=== PATIENT | male | born 1970 | race Caucasian/White ===

== ENCOUNTER 2018-10-09 05:58 | Day surgery (SDC) | payer BC ==
[2018-10-06 11:24] LABS: BASOPHILS # (AUTO) 0.1 X10'3 (0-0.2); EOSINOPHILS # (AUTO) 0.1 X10'3 (0-0.9); EOSINOPHILS % (AUTO) 1.9 % (0-6); HEMATOCRIT 50.3 % (42.0-52.0); HEMOGLOBIN 17.2 g/dl (14.0-17.9); LYMPHOCYTES # (AUTO) 1.4 X10'3 (1.1-4.8); LYMPHOCYTES % (AUTO) 26.6 % (21-51); MEAN CORPUSCULAR HEMOGLOBIN 32.3 PG (27.0-31.0); MEAN CORPUSCULAR HGB CONC 34.2 % (33.0-36.5); MEAN CORPUSCULAR VOLUME 94.6 FL (78-98); MEAN PLATELET VOLUME 7.5 FL (7.4-10.4); MONOCYTES # (AUTO) 0.3 X10'3 (0-0.9); MONOCYTES % (AUTO) 4.9 % (2-12); NEUTROPHILS # (AUTO) 3.3 X10'3 (1.8-7.7); NEUTROPHILS % (AUTO) 65.6 % (42-75); PLATELET COUNT 253 X10'3 (140-440); RED BLOOD COUNT 5.31 X10'6 (4.70-6.10); RED CELL DISTRIBUTION WIDTH 11.7 % (11.5-14.5); WHITE BLOOD COUNT 5.2 X10'3 (4.5-11.0)
[2018-10-06 11:39] LABS: PARTIAL THROMBOPLASTIN TIME 29 SECONDS (22-32); PROTHROMBIN TIME 10.5 SECONDS (9.0-12.0)
[2018-10-06 12:49] LABS: ALBUMIN 3.9 G/DL (3.4-5.0); ANION GAP 9 (8-16); BLOOD UREA NITROGEN 14 MG/DL (7-18); BUN/CREATININE RATIO 13.7 (5.4-32.0); CALCIUM 8.9 MG/DL (8.5-10.1); CHLORIDE 104 MMOL/L (99-107); CREATININE 1.02 MG/DL (0.60-1.10); GLUCOSE 104 MG/DL (70-104); POTASSIUM 3.6 MMOL/L (3.5-5.1); SODIUM 142 MMOL/L (135-145); eGFR 79 ML/MIN
[~2018-10-09] VITALS: Ht 175.3 cm; Wt 87.9 kg
[2018-10-09] VITALS (12 sets, daily range): BP systolic 107–136; BP diastolic 67–81
[2018-10-09] MEDS ORDERED: normal saline 1000ml 1,000 ML IV SCH (06:15)
[2018-10-09] MEDS ORDERED: LORazepam 0.5 MG tablet PO PRN (06:15)
[2018-10-09] MEDS ORDERED: diphenhydrAMINE 25mg capsule PO PRN (06:15)
[2018-10-09] MEDS ORDERED: LIDOcaine/PRILOcaine 5gm cream TP ONE (06:20)
[2018-10-09] MEDS ORDERED: ASPI81TA52 PO (06:26)
[2018-10-09] MEDS ORDERED: METO25TA6 PO (06:26)
[2018-10-09] MEDS ORDERED: CHOL10002 PO (06:26)
[2018-10-09] MEDS ORDERED: ATOR10TA PO (06:26)
[2018-10-09] MEDS ORDERED: TURM538C PO (06:26)
[2018-10-09] MEDS ORDERED: HYDR-3686 PO (06:26)
[2018-10-09] MEDS ORDERED: BIOT10004 PO (06:26)
[2018-10-09] MEDS ORDERED: nitroGLYCERIN-Tridil 50MG/D5W 250 ML IV ONE (08:29)
[2018-10-09] MEDS ORDERED: LIDOcaine 1% (10mg/ml)w/preservative injection 20ml MDV ONE (08:30)
[2018-10-09] MEDS ORDERED: heparin 1,000unit/ml 10ml vial 10 ML ONE (08:30)
[2018-10-09] MEDS ORDERED: iohexol 350 MG/ML 50ML vial IV ONE (08:30)
[2018-10-09] MEDS ORDERED: iohexol 350MG/ML 100ml bottle IV ONE (08:30)
[2018-10-09] MEDS ORDERED: verapamil 2.5 mg/ml inj IV ONE (08:30)
[2018-10-09] MEDS ORDERED: fentaNYL/PF 50MCG/1 ML 2ML syringe ONE (08:37)
[2018-10-09] MEDS ORDERED: midazolam 2 mg/2 ml injection ONE (08:37)
== END 2018-10-09 13:56 | disposition home or self-care (01) ==
LOC: SSTAY O 05:58
PROVIDERS: ATTEND Internal Medicine Cardiovascular Disease
DX: I25.10 Atherosclerotic heart disease of native coronary artery without angina pectoris (principal); E78.5 Hyperlipidemia, unspecified; Z86.74 Personal history of sudden cardiac arrest; Z79.82 Long term (current) use of aspirin; Z79.899 Other long term (current) drug therapy; Z98.890 Other specified postprocedural states; Z82.49 Family history of ischemic heart disease and other diseases of the circulatory system
CPT/HCPCS: 36415; 80048; 85025; 85610; 85730; 93005; 93458; 99152; 99153; A6257; C1760; J1644; J2001; J2250; J3010; J7030; Q0163; Q9967; A4620; C1769; J3490

== ENCOUNTER 2019-06-22 09:31 | Outpatient (CLI) | payer BC ==
[~2019-06-22 09:31] MED LIST: ASPI81TA52 PO; ATOR10TA PO; BIOT10004 PO; CHOL10002 PO; HYDR-3686 PO; METO25TA6 PO; SIMETHICONE/SOD BICARB/CIT AC PACKET PO ONE; TURM538C PO; barium sulfate 450ml oral suspension ONE
== END 2019-06-22 23:59 | disposition home or self-care (01) ==
LOC: RAD 09:31
PROVIDERS: ATTEND Surgery
DX: K21.0 Gastro-esophageal reflux disease with esophagitis (principal)
CPT/HCPCS: 74241

== ENCOUNTER 2025-08-08 06:24 | Inpatient (IN) | payer BC, OTHER ==
[~2025-08-08] VITALS: Ht 172.7 cm; Wt 95.5 kg
[2025-08-08] VITALS (18 sets, daily range): BP systolic 132–147; BP diastolic 76–102; PULSE 61–91; RESP 11–19; TEMP 97.9–98.5; O2SAT 93–100
[~2025-08-08 06:24] MED LIST changes: +LOP25T PO; -METO25TA6 PO; -SIMETHICONE/SOD BICARB/CIT AC PACKET PO ONE; -barium sulfate 450ml oral suspension ONE
--- NOTE | 2025-08-08 06:34 | Physician Documentation ---
History of Present Illness Chief Complaint: Abdominal Pain Stated Complaint: APPENDICITIS MADHU PHI Time Seen by MD: 06:29 HPI 55-year-old male, transferred from outside hospital with a appendicitis The patient tells me that his pain started yesterday afternoon. He went to an outside hospital and was diagnosed with a appendicitis. Currently, he denies any significant pain or nausea. He does have tenderness in the right lower quadrant only. No fever or other concerns. Per flight crew, this was an uneventful transfer. Medication Reconciliation Allergies: Coded Allergies: No Known Allergies (Unverified , 10/09/18) Scheduled Aspirin (Aspirin EC), 1 TABLET PO DAILY, (Reported) Atorvastatin Calcium (Lipitor), 1 TAB PO DAILY, (Reported) Biotin (Biotin), 1 TAB PO DAILY, (Reported) Cholecalciferol (Vitamin D3) (Vitamin D3), 5,000 UNIT PO DAILY, (Reported) Hydroxyzine Hcl* (Atarax*), 1 TAB PO Q8H, (Reported) Metoprolol Tartrate* (Lopressor tablet*), 1 TAB PO Q12H, (Reported) Turmeric Root Extract (Turmeric), 1,053 MG PO DAILY, (Reported) Past Medical History Patient History: FH: brain aneurysm MOTHER Review of Systems Constitutional: Denies: fever Gastrointestinal: Reports: abdominal pain Physical Exam Vital Signs: Temperature: 97.8, Source: Oral, Heart Rate: 72, Respiratory Rate: 16, BP: 153/93, Pulse Oximetry: 96, Weight: 95.450 Oxygen Flow Rate: 0 Physical Exam General: This is a pleasant middle-aged man sitting calmly in bed HEENT: Atraumatic, oropharynx is moist Heart: Regular rate and rhythm, normal-appearing peripheral perfusion Lungs: normal work of breathing, normal oxygen saturation on room air Abdomen: Soft, nondistended, focal tenderness to palpation in the right lower quadrant only, otherwise nontender, no rebound or guarding Neuro: Alert and oriented Psychiatric: Calm and cooperative with exam Progress Results/Orders Results/Orders Orders - TOMMY NOBLE MD Hospitalist (08/08/25 06:30) Cbc/Diff (08/08/25 06:30) BMP (08/08/25 06:30) Pt Inr (08/08/25 06:30) Vital Signs 08/08/25 06:27 Temp 97.8 Pulse 72 Resp 16 B/P (MAP) 153/93 Pulse Ox 96 O2 Flow Rate 0 Consults/PCP Consults/PCP : Additional Comment Consult: I spoke to Dr. Guzmán, general surgery for surgical evaluation Consult: I spoke to the internal medicine service, for admission in the hospital Medical Decision Making Additional information obtaine: old records Findings Reviewed records from outside hospital including CT imaging Differential Dx:Considerations: Appendicitis Additional Comments The patient presents as a transfer with the appendicitis. On review of his workup with the outside hospital there was no evidence of complication. He did receive antibiotics. He currently has no significant pain or nausea. Surgery was consulted and he will be admitted for further treatment. Departure Impression: Primary Impression: Acute appendicitis Referrals: NO PRIMARY CARE PROVIDER (PCP) Signature Scribe Signature: na Attestation: TOMMY Hogue MD Aug 08, 2025 06:34
[2025-08-08 06:56] LABS: MEAN PLATELET VOLUME 7.2 FL (7.4-10.4); RED CELL DISTRIBUTION WIDTH 13.5 % (11.5-14.5)
[2025-08-08 07:07] LABS: CREATININE 1.15 MG/DL (0.60-1.10); INR 1.1 INR; TOTAL CARBON DIOXIDE 25.0 MMOL/L (24-32); eCRCL 72 ML/MIN; eGFR 67 ML/MIN
[2025-08-08] MEDS ORDERED: magnesium hydroxide 30ml (MOM) UD suspension PO PRN (07:20)
[2025-08-08] MEDS ORDERED: magnesium sulf-water 2g/50mL 50 ML IV PRN (07:20)
[2025-08-08] MEDS ORDERED: hydrALAZINE 20mg/ml inj. IV PRN ×3 (07:20→20:50)
[2025-08-08] MEDS ORDERED: potassium Cl 20 mEq SR tablet PO PRN ×2 (07:20)
[2025-08-08] MEDS ORDERED: magnesium sulf-water 4G/100mL 100 ML IV PRN (07:20)
[2025-08-08] MEDS ORDERED: potassium Cl 40MEQ/1/2NS 520ml 520 ML IV PRN (07:20)
[2025-08-08] MEDS ORDERED: mag hydrox/Alum hydrox/simeth 30ml oral suspension PO PRN (07:20)
[2025-08-08] MEDS ORDERED: ondansetron 4mg rapidly disintigrating tab PO PRN (07:20)
[2025-08-08] MEDS: K and/or MAG REPLACEMENT MC SCH (08:00)
[2025-08-08] MEDS: docusate sod 100mg capsule PO SCH (08:00)
[2025-08-08] MEDS: piperacillin/tazo 3.375gm/50ml 50 ML IV SCH (08:05)
[2025-08-08] MEDS: ringers solution, lacted 1,000 ML IV SCH (08:06)
[2025-08-08] MEDS ORDERED: FLEC50TA PO (09:16)
--- NOTE | 2025-08-08 10:43 | HISTORY AND PHYSICAL ---
History & Physical Providers to CC ~ History of Present Illness Reason for Admit\Complaint: Acute appendicitis History of Present Illness Eduardo Meneses is a 55-year-old male with a past medical history of hyperlipidemia, NSTEMI, arrhythmia, who was transferred from OSH to [facility] for management of acute appendicitis which was evidenced in OSH CT for appendicitis without evidence of complication. Patient initially presented to [facility] with chief complaint of lower quadrant abdominal pain x 2 days. Patient denies chest pain, palpitations, shortness of breath, n/v/d, fever, chills, dysuria. Patient denies prior CVA, DVT/PE, or GIB. Patient is to be admitted for further workups and surgical intervention. Allergies: Coded Allergies: No Known Allergies (Unverified , 10/09/18) Home Medications Home Medications Active Reported Flecainide Acetate 50 Mg Tablet 0.5 Tab PO QAM 30 Days Atarax* (Hydroxyzine HCl) 25 Mg Tablet 1 Tab PO Q8H 10 Days Lipitor (Atorvastatin Calcium) 10 Mg Tablet 1 Tab PO DAILY 30 Days Lopressor tablet* (Metoprolol Tartrate) 25 Mg Tablet 1 Tab PO Q12H 30 Days Turmeric (Turmeric Root Extract) 538 Mg Capsule 1,053 Mg PO DAILY Vitamin D3 (Cholecalciferol (Vitamin D3)) 1,000 Unit Tablet 5,000 Unit PO DAILY 30 Days Biotin 1,000 Mcg Tab.chew 1 Tab PO DAILY Aspirin EC (Aspirin) 81 Mg Tablet.dr 1 Tablet PO DAILY Past Medical History Past Medical History Hyperlipidemia Arrhythmia CAD NSTEMI, no stent Past Surgical History Surgical History Comment Orthopedic surgeries Family History Family History: FH: brain aneurysm MOTHER Past Social History Social History Comment Alcohol: Denies Tobacco: Denies, never Illicit drug use: Denies Living situation: Lives at home with spouse ROS ROS Other than positives in HPI, all 14 review of systems are negative Exam Vitals: Vital Signs Date Time Temp Pulse Resp B/P (MAP) Pulse Ox O2 Delivery O2 Flow Rate FiO2 08/08/25 07:52 68 16 136/64 (88) 98 0 08/08/25 06:37 97.8 General: A&Ox 3, NAD HEENT: Normocephalic, PERRLA Neck: Supple, trachea midline, no JVD Chest: Clear to auscultation bilaterally Cardiovascular: RRR, S1&S2 Abdomen: Positive McBurney sign, tenderness in left lower quadrant with palpation, negative rebound tenderness, negative Rovsing's, negative Psoas, negative obturator sign Extremities: No cyanosis/clubbing/or edema Central Nervous System: CN II-XII intact, no focal deficits Musculoskeletal: No paraspinal muscle tenderness, no muscle spasm Skin: Warm and intact Diagnostic Data Last Recorded Lab Results: 08/08/25 0638 08/08/25 0638 Diagnostic Data: Laboratory Tests Test 08/08/25 06:38 Prothrombin Time 11.1 SECONDS (9.0-12.0) INR International Normalized Ratio 1.1 INR Coagulation Comments Additional Plan Assessment & Plan Acute appendicitis, uncomplicated -supportive care, abx, consulted surgeon Dr. Guzmán, OR today Hyperlipidemia Arrhythmia, unknown (Dr. Omalley) CAD NSTEMI, no stent -EKG, pending med rec DVT/VTE prophylaxis: SCDs Date of Service: Aug 08, 2025 Billing Provider: BRIT MEDINA Common Visit Codes: 73072-LFHOBKN INP/OBS CARE (HIGH) Secondary Visit Codes: [id number]-[id number] CARE PLAN 30 MINUTES BRIT MEDINA Aug 08, 2025 10:43
--- NOTE | 2025-08-08 10:53 | ELECTROCARDIOGRAPH REPORT ---
[facility] Test Date: 2025-08-08 Test Time: 06:48:21 Pat Name: BRANDY COBIAN Department: EMERGENCY ROOM [id number] Room: [place] [id number] B Gender: M Dough Mixer Operator: EDINSON : 1970 Requested By: BRIT MEDINA Order Number: [id number] Reading MD: Dr. Judd Millan Measurements Intervals [place] Rate: 64 P: 48 MA: 182 QRS: 28 QRSD: 81 T: 43 QT: 372 QTc: 384 Interpretive Statements Sinus rhythm RSR' in V1 or V2, right VCD or RVH Electronically Signed On 08-13-2025 20:45:[address] Judd Millan Please click the below link to view image of tracing.
[2025-08-08] MEDS ORDERED: METO25TA6 PO (12:21)
--- NOTE | 2025-08-08 13:45 | RADIOLOGY REPORT ---
CHEST RADIOGRAPH Indication: surgery this afternoon Technique: Single frontal view of the chest was obtained Comparison: None FINDINGS: Lines and Tubes: None Lungs: No focal consolidation. Pleura: No effusion. No pneumothorax. Cardiomediastinal contours: Unremarkable Bones: No acute osseous abnormality. IMPRESSION: No acute cardiopulmonary disease.
[2025-08-08] MEDS ORDERED: BUPIVAcaine/PF 2.5mg/ml (0.25%) 10ml vial ONE (14:16)
[2025-08-08] MEDS ORDERED: LIDOcaine 1% 30ml preserv. free vial ONE (14:16)
--- NOTE | 2025-08-08 18:29 | CONSULTATION REPORT ---
History of Present Illness Providers to CC CC: EMMA MCDOANLD MD ~ Reason for Admit\Admit Dx: Acute appendicitis History of Present Illness At about noon yesterday, patient developed diffuse lower abdominal pain. He thought that he may have food poisoning. Went to bed at about 8:00 p.m. and awoke at 11:00 p.m. with a severe right lower quadrant abdominal pain. He had chills as well. He presented to the emergency room at an outside facility where he was found to have clinical and radiographic evidence of acute appendicitis. He was transferred here this morning and surgical consultation was requested. I reviewed the patient's CT scan this morning and found it to be consistent with early acute appendicitis without evidence of perforation or complicated findings. He was started on antibiotics and made NPO today. He continues to have some right lower quadrant abdominal pain, however, this has significantly improved throughout the day No fevers or chills today. He has never had a colonoscopy Allergies: Coded Allergies: No Known Allergies (Unverified , 10/09/18) Home Medications Home Medications Active Reported Metoprolol Tartrate 25 Mg Tablet 0.5 Tab PO DAILY Flecainide Acetate 50 Mg Tablet 0.5 Tab PO QAM 30 Days Atarax* (Hydroxyzine HCl) 25 Mg Tablet 1 Tab PO Q8H 10 Days Lipitor (Atorvastatin Calcium) 10 Mg Tablet 1 Tab PO DAILY 30 Days Turmeric (Turmeric Root Extract) 538 Mg Capsule 1,053 Mg PO DAILY Vitamin D3 (Cholecalciferol (Vitamin D3)) 1,000 Unit Tablet 5,000 Unit PO DAILY 30 Days Biotin 1,000 Mcg Tab.chew 1 Tab PO DAILY Aspirin EC (Aspirin) 81 Mg Tablet.dr 1 Tablet PO DAILY Past Medical History Medical History Comment Hypertension Past Surgical History Surgical History Comment Right arm orthopedic surgery Past Family History Family History Comment Noncontributory Family History: Appendicitis FATHER FH: brain aneurysm MOTHER, , Cause: Alzheimer disease FH: colon cancer FATHER FH: dementia MOTHER, , Cause: Alzheimer disease Past Social History Social History Comment Negative x3 He works for [employer] Maintenance Health Maintenance Not applicable Physical Exam Last Vital Signs Recorded: RN Vital Signs have been reviewed: Yes, Temperature: 98.5, Source: Oral, Heart Rate: 74, Respiratory Rate: 16, BP: 145/86, Pulse Oximetry: 97, Weight: 95.450 General Appearance: alert, WD/WN, no apparent distress EENT: PERRL/EOMI Neck: normal inspection, full range of motion Respiratory: lungs clear Cardiovascular: normal peripheral pulses, regular rate, rhythm Gastrointestinal Soft and nondistended No palpable masses or hernias Tenderness just lateral to McBurney's point Rectal: deferred Back: normal inspection, no CVA tenderness Extremities: normal range of motion, no edema Neurologic: oriented x4 Psychiatric: normal mood/affect; No: anxiety Skin: normal color Lymphatic: no adenopathy Review of Systems ROS ROS Comments: Reviewed and negative with the exception of those found in the history of present illness Results Diagram Lab Result Diagram: 08/08/2563708/08/25637 Assessment/Plan Problems/Diagnosis: (1) Acute appendicitis Assessment & Plan: The risks, benefits, and alternatives to a robotic assisted, laparoscopic possible open appendectomy were discussed with the patient. Risks include, but are not limited to, bleeding, infection, injury to intra-abdominal structures, leakage from the intestine and the need for additional surgery. Patient verbalized understanding and wishes to proceed with surgery. We will do so as soon as possible. EMMA MCDONALD MD Aug 08, 2025 18:29
[2025-08-08] MEDS ORDERED: dexamethasone sod phosphate 4mg/ml inj. ONE (19:00)
[2025-08-08] MEDS ORDERED: glycopyrrolate 0.2mg/ml inj ONE ×2 (19:00→20:01)
[2025-08-08] MEDS ORDERED: fentaNYL/PF 50MCG/1 ML 2ML syringe ONE (19:11)
[2025-08-08] MEDS ORDERED: midazolam 1 mg/ML 2ml injection ONE (19:12)
[2025-08-08] MEDS: BUPIVAcaine/PF 2.5 mg/ml (0.25%) 30ml vial IJ ONE (19:26)
[2025-08-08] MEDS: LIDOcaine 1% 30ml preserv. free vial IJ ONE (19:26)
[2025-08-08] MEDS ORDERED: rocuronium 10mg/ml inj IV ONE (20:01)
[2025-08-08] MEDS ORDERED: propofol inj 20 ML IV ONE (20:01)
[2025-08-08] MEDS ORDERED: acetaminophen 1,000mg/100ml IV 100 ML IV ONE (20:06)
--- NOTE | 2025-08-08 20:14 | OPERATIVE REPORT ---
Operative Report Providers to CC: EZEKIEL MCDONALD MD ~ Date of Procedure: Aug 08, 2025 Pre-Operative Diagnosis: acute appendicitis Post-Operative Diagnosis SAME as PRE-Op Procedure Performed Robotic assisted, laparoscopic appendectomy Surgeon: Ezekiel Mcdonald MD FACS Tool Supervisor None Anesthesiologist: Taj Walter Type of Anesthesia: General Findings: Acute non perforated appendicitis Wound class III Complications None Prosthetics\Implants used: None Estimated Blood Loss: Minimal Specimen Removed: Appendix Description of Procedure: Patient was brought to the operating room and identified by the nursing staff and the attending physician. Patient was placed supine and a general anesthesia was induced. The patient's abdomen was prepped and draped in the standard sterile fashion. Preoperative antibiotics were given. Veress needle technique was used at Vieira's point and the abdomen was insufflated without incident. Under laparoscopic visualization a 12 mm port was placed in the right upper quadrant. Laparoscope was inserted and additional 8.5 mm robotic ports were placed in the left periumbilical and left lower quadrant. Patient was placed in Trendelenburg position with the right side up. Da Baron robotic arm was docked to the patient and instruments guided into the abdomen under laparoscopic visualization. The appendix was readily identified along the right pericolic gutter. It was inflamed without evidence of perforation or abscess. Congenital adhesions were taken down, mobilizing it toward the midline to allow visualization and division of the mesoappendix using vessel sealer device. The appendix was mobilized up to its base which appeared uninvolved by the inflammatory changes. Appendix was divided at the base with a robotic linear cutting stapler. Instruments were removed. The da Baron robotic arm was undocked from the patient. The appendix was placed in a laparoscopic retrieval bag. Right upper quadrant port was removed with the specimen in the retrieval bag. Fascia at the 12 mm port site was closed percutaneously with 0 Vicryl suture. Abdomen was deflated and remaining ports removed. Skin was closed at all sites with 4-0 Monocryl sutures in a subcuticular fashion. Dressings were applied. Patient was awakened and taken to the postanesthesia care unit in stable condi tion. Counts repoted as correct: Yes EZEKIEL MCDONALD MD Aug 08, 2025 20:14
[2025-08-08] MEDS ORDERED: HYDROcodone/acetaminophen 5mg/325mg tablet PO PRN (20:15)
[2025-08-08] MEDS: ondansetron/PF 4mg/2ml inj IV PRN ×2 (20:27→20:39)
[2025-08-08] MEDS ORDERED: ringers solution, lacted 1,000 ML IV SCH (20:30)
[2025-08-08] MEDS ORDERED: HYDROmorphone/PF 0.2 MG/ML SYRINGE IV PRN ×2 (20:30)
[2025-08-08] MEDS ORDERED: labetalol 20mg/4ml (5mg/ml) syringe IV PRN (20:30)
[2025-08-08] MEDS ORDERED: fentaNYL/PF 50MCG/1 ML 2ML syringe IV PRN ×4 (20:30→20:37)
--- NOTE | 2025-08-08 20:32 | DISCHARGE SUMMARY ---
Discharge Summary Providers to CC CC: EZEKIEL MCDONALD MD ~ Discharge Summary Admission Diagnosis: acute appendicitis Hospital Course DATE OF ADMISSION: August 08, 2025 DATE OF DISCHARGE: August 08, 2025 Discharge Diagnosis\Comment: Acute appendicitis Operations\Procedures: Robotic assisted, laparoscopic appendectomy Consultants: Ezekiel Mcdonald MD FACS Complications: None Condition on DC: Stable New Medications: Hydrocodone Bit/Acetaminophen (Hydrocodon-Acetaminophen 5-325) 5 Mg-325 Mg Tablet 1 TAB PO Q4H PRN for moderate or severe pain 4-10 for 5 Days, #30 TAB Continued Medications: Aspirin (Aspirin EC) 81 Mg Tablet.dr 1 TABLET PO DAILY, #90 TABLET 3 Refills Atorvastatin Calcium (Lipitor) 10 Mg Tablet 1 TAB PO DAILY for 30 Days, #30 TAB Biotin (Biotin) 1,000 Mcg Tab.chew 1 TAB PO DAILY Cholecalciferol (Vitamin D3) (Vitamin D3) 1,000 Unit Tablet 5000 UNIT PO DAILY for 30 Days, #30 TAB Flecainide Acetate (Flecainide Acetate) 50 Mg Tablet 0.5 TAB PO QAM for 30 Days, #60 TAB 0 Refills Hydroxyzine Hcl* (Atarax*) 25 Mg Tablet 1 TAB PO Q8H for 10 Days, #30 TAB Metoprolol Tartrate (Metoprolol Tartrate) 25 Mg Tablet 0.5 TAB PO DAILY, TAB 0 Refills Turmeric Root Extract (Turmeric) 538 Mg Capsule 1053 MG PO DAILY Discharge Summary: Patient was transferred here from [facility] with a diagnosis of acute appendicitis. He was treated with IV antibiotics till he was taken to the operating room for an uncomplicated appendectomy. He was deemed ready for discharge home in the recovery room. *Problems/Diagnosis: (1) Acute appendicitis Status: Acute Total Time Spent on D/C: Up to 30 Minutes Counseling Services Smoking & Tobacco Cessation: N/A EZEKIEL MCDONALD MD Aug 08, 2025 20:32
[2025-08-08] MEDS: HYDROcodone/acetaminophen 5mg/325mg tablet PO PRN (21:02)
[2025-08-08] MEDS: ketorolac trometh 30MG/ML vial 30 MG/ML VIAL IV ONE (21:06)
[2025-08-09] MEDS ORDERED: aspirin 81mg, enteric-coated 1 TAB TABLET.DR PO SCH (08:00)
[2025-08-09] MEDS ORDERED: TURMERIC ROOT EXTRACT 1053 MG PO SCH (08:00)
[2025-08-09] MEDS ORDERED: cholecalciferol (vitamin D3) 1,000 unit (25mcg) tablet PO SCH (08:00)
== END 2025-08-08 22:29 | disposition home or self-care (01) | DRG 397 ==
LOC: ER 06:25 → ED HOLD 07:24 → SUR 3N 09:25 → UNDODISIN 20:37
PROVIDERS: ADMIT Nurse Practitioner Family; ATTEND Nurse Practitioner Family
PROC: 8E0W4CZ Robotic Assisted Procedure of Trunk Region, Percutaneous Endoscopic Approach (ICD-10-PCS; 2025-08-08)
PROC: 0DTJ4ZZ Resection of Appendix, Percutaneous Endoscopic Approach (ICD-10-PCS; principal; 2025-08-08 19:04)
DX: K35.80 Unspecified acute appendicitis (principal); I21.4 Non-ST elevation (NSTEMI) myocardial infarction; E78.5 Hyperlipidemia, unspecified; I25.10 Atherosclerotic heart disease of native coronary artery without angina pectoris; I10 Essential (primary) hypertension; Z79.82 Long term (current) use of aspirin; Z79.899 Other long term (current) drug therapy; I25.2 Old myocardial infarction
CPT/HCPCS: 96365; 96375; 99285; Z7506; Z7508; 36415; 71045; 80048; 82948; 83735; 85025; 85610; 87081; 93005; A4215; A4618; G0378; J0131; J0780; J1100; J1885; J2003; J2250; J2405; J2543; J2704; J2710; J3010; J3490; J7120